=== PATIENT | male | born 1945 | race Caucasian/White ===

== ENCOUNTER 2018-08-09 13:18 | Inpatient (IN) | payer MEDICARE ==
[~2018-08-09 13:18] MED LIST: FLEXERIL 1010 MG/TAB PO; NORCO 325 MG-51 TAB PO; VASOTEC 10M10 MG/TAB PO; ZYLOPRIM 300MG300 MG PO
--- NOTE | 2018-10-04 13:38 | NUR ---
Initial visit; Patient thanked Substation Technician for looking in on him, visiting and offering encouragement and God's blessings.
[2018-10-04 13:56] LABS: BASO % 0.1 % (0.0-2.0); GRAN # 6.8 (1.4-6.5); GRAN % 86.5 % (42.2-75.2); HEMATOCRIT 29.6 % (42.0-52.0); HEMOGLOBIN 9.9 g/dl (13.5-18.0); LYMPH # 0.5 (1.2-3.4); LYMPH % 6.4 % (20.0-51.0); MEAN CELL VOLUME 100 fl (80.0-100.0); MEAN CORPUSCULAR HEMOGLOBIN 33 pg (27.0-31.0); MEAN CORPUSCULAR HGB CONC 33 g/dl (33.0-37.0); MEAN PLATELET VOLUME 10.5 fl (7.4-10.4); MONO # 0.5 (0.1-0.6); MONO % 6.7 % (1.7-9.3); PLATELET COUNT 139 K/mm3 (130-400); RED BLOOD COUNT 2.97 M/mm3 (4.20-5.60); REDCELL DISTRIBUTION WIDTH-CV 11.5 % (11.5-14.5)
--- NOTE | 2018-10-04 14:00 | NUR ---
SW met with patient about discharge planning. Patient lives independently at home with his . Patient's PCP is Dr Anastacio Bolaños and [facility] Patient does not use any DME or home health services and is not interested in that at this time. SW does not anticipate any discharge needs.
--- NOTE | 2018-10-04 16:39 | NUR ---
Leg bag teaching completed at this time, demonstrated for patient and education provided regarding cath care and cleaning. Pt verbalized understanding and will be willing to start demonstrating soon. Ambulated down hallway, pt tolerated well and denies any lightheadedness. Back in bed with SCDs on and ice water at bedside. Will continue to monitor.
--- NOTE | 2018-10-04 17:25 | NUR ---
Pt doing well, tired after ambulating on floor. Drainage at anabel drain site, reinforced. Midline naz intact and not draining. Castro draining yellow urine to bag at side of bed. Denies any pain. Will give bedside shift report to nightshift nruse who will resume care.
[2018-10-04 17:33] VITALS: BP 110/54; PULSE 68; TEMP 97.7
--- NOTE | 2018-10-04 21:00 | NUR ---
Patient resting in bed. Has epidural at 4cc/hr infusing, denies pain. Has stern catheter to BSD with yellow urine. Both harriet drains have been cut and bagged in ostomy appliance bag. Talisha to midline incision open to air. Is alert and oriented x3.
[2018-10-05] VITALS: BP 93/52; PULSE 83; TEMP 97.5
[2018-10-05 04:30] VITALS: BP 112/51; PULSE 77; TEMP 97.5
--- NOTE | 2018-10-05 04:50 | NUR ---
Patient has rested well. His son stopped by earlier to check on him. Epidural continues, denies pain. Castro with excellent output this shift.
[2018-10-05 08:00] VITALS: BP 116/60; PULSE 76; TEMP 98.3
--- NOTE | 2018-10-05 09:23 | NUR ---
Kaykay drains removed from LLQ with no complications, gauze and tegaderm applied. Epidural catheter removed from lower back with no complications, band aid applied.
[2018-10-05 11:45] VITALS: BP 110/57; PULSE 99; TEMP 98.5
--- NOTE | 2018-10-05 12:45 | NUR ---
Discharge instructions reviewed with patient and spouse, verbalized understanding. Castro care reviewed. Discharged via wheelchair to auto/home with spouse at 1335.
--- NOTE | 2018-10-07 08:53 | NUR ---
LATE ENTRY DUE TO COMPUTERS DOWN INFORMATION ENTERED LATE
== END 2018-10-05 12:35 | disposition home or self-care (01) | DRG 708 ==
LOC: SURG 08-29 07:30
PROVIDERS: ADMIT Urology
PROC: 0VT00ZZ Resection of Prostate, Open Approach (ICD-10-PCS; principal; 2018-10-03 07:30)
DX: C61 Malignant neoplasm of prostate (principal); Z91.013 Allergy to seafood; Z80.42 Family history of malignant neoplasm of prostate; I10 Essential (primary) hypertension; M10.9 Gout, unspecified; F17.210 Nicotine dependence, cigarettes, uncomplicated; G47.33 Obstructive sleep apnea (adult) (pediatric); S80.212A Abrasion, left knee, initial encounter; W18.39XA Other fall on same level, initial encounter; Y92.091 Bathroom in other non-institutional residence as the place of occurrence of the external cause; R35.1 Nocturia
CPT/HCPCS: J0690; J1100; J2250; J2370; J2405; J2704; J2710; J3010; J3480; J7120